=== PATIENT | male | born 1950 | race African-American/Black ===

== ENCOUNTER 2017-09-22 23:20 | Emergency (ER) | payer OTHER ==
[~2017-09-22] VITALS: Ht 177.8 cm; Wt 86.2 kg
[~2017-09-22 23:20] MED LIST: ZOFRAN4 MG ORAL
[2017-09-22] MEDS ORDERED: ATENOLOL25 MG ORAL (23:23)
[2017-09-22] MEDS ORDERED: AMLODIPINE BES2.5 MG ORAL (23:23)
[2017-09-22] MEDS ORDERED: ZIAC1 EA ORAL (23:24)
[2017-09-22 23:30] VITALS: BP 122/89
[2017-09-23] MEDS ORDERED: Tylenol #3 tab (300mg/30mg) ORAL ONE (00:30)
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
[2017-09-23] MEDS ORDERED: ACETAMINOPHEN-1 EAC1 ORAL (00:59)
[2017-09-23] MEDS ORDERED: IBUPROFEN600 MG ORAL (00:59)
[2017-09-23] MEDS ORDERED: Morphine Sulfate 4mg/ml Inj IM ONE (01:00)
[2017-09-23 01:10] VITALS: BP 118/72
[2017-09-23 01:12] VITALS: BP 118/72
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
== END 2017-09-23 01:12 | disposition home or self-care (01) ==
LOC: EDBD 23:20 → EMR 23:54
DX: S52.502A Unspecified fracture of the lower end of left radius, initial encounter for closed fracture (principal); S52.501A Unspecified fracture of the lower end of right radius, initial encounter for closed fracture; I10 Essential (primary) hypertension; E11.9 Type 2 diabetes mellitus without complications; V03.90XA Pedestrian on foot injured in collision with car, pick-up truck or van, unspecified whether traffic or nontraffic accident, initial encounter; Y92.410 Unspecified street and highway as the place of occurrence of the external cause
CPT/HCPCS: 29125; 73110; 96372; 99284; J2270